=== PATIENT | female | born 1990 | race Caucasian/White ===

== ENCOUNTER 2023-12-04 22:20 | Emergency (ER) | payer BC ==
[2023-12-05 00:04] LABS: BASOPHILS ABSOLUTE AUTO 0.1 K/mm3 (0.0-0.2); BASOPHILS PERCENT AUTO 0.7 % (0.0-1.0); EOSINOPHILS ABSOLUTE AUTO 0.1 K/mm3 (0.0-0.4); EOSINOPHILS PERCENT AUTO 0.7 % (0.0-6.0); HEMATOCRIT 36.9 % (37.0-47.0); HEMOGLOBIN 12.4 gm/dl (12.0-16.0); IMMATURE GRAN ABSOLUTE AUTO 0.02 K/mm3 (0.00-0.05); IMMATURE GRAN PERCENT AUTO 0.3 % (0.0-0.4); LYMPHOCYTES ABSOLUTE AUTO 1.9 K/mm3 (1.0-4.8); LYMPHOCYTES PERCENT AUTO 26.2 % (24.0-44.0); MEAN CORPUSCULAR HEMOGLOBIN 30.8 pg (28.0-32.0); MEAN CORPUSCULAR HGB CONC 33.6 g/dl (32.0-36.0); MEAN CORPUSCULAR VOLUME 91.6 fl (83.0-99.0); MONOCYTES ABSOLUTE AUTO 0.7 K/mm3 (0.0-0.8); MONOCYTES PERCENT AUTO 9.1 % (0.0-8.0); NEUTROPHILS ABSOLUTE AUTO 4.7 K/mm3 (1.8-7.7); PLATELET COUNT,PLT 392 K/mm3 (150-400); RED BLOOD CELL COUNT 4.03 M/mm3 (4.10-5.30)
[2023-12-05 00:34] LABS: A/G RATIO 1.1 (1-2); ALANINE AMINOTRANSFERASE,ALT 23 U/L (14-59); ALBUMIN 4.3 g/dl (3.4-5.0); ALKALINE PHOSPHATASE 72 U/L (46-116); ANION GAP 15.4 (5-15); ASPARTATE AMNIOTRANSFERASE,AST 18 U/L (15-37); BILIRUBIN TOTAL 0.3 mg/dL (0.2-1.0); BLOOD UREA NITROGEN,BUN 13 mg/dL (7-18); BUN/CREATININE RATIO 16.3 (14-18); CALCIUM 9.2 mg/dL (8.5-10.1); CARBON DIOXIDE,CO2 25 mEq/L (21-32); CHLORIDE,CL 100 mEq/L (98-107); CREATININE 0.8 mg/dL (0.55-1.02); EST CRCL DRUG DOSING (CG) 81.31 mL/min; ESTIMATED GFR 99 mL/min (>60); GLUCOSE RANDOM 89 mg/dL (70-99); POTASSIUM,K 3.4 mEq/L (3.5-5.1); PROTEIN TOTAL,TP 8.1 g/dl (6.4-8.2); SODIUM,NA 137 mEq/L (136-145)
[2023-12-05] MEDS: Dextrose 5%-0.9% NaCl 1,000 ML IV SCH (00:40)
[2023-12-05] MEDS: Metoclopramide 10 MG/2 ML SDV IVPUSH ONE (00:41)
[2023-12-05] MEDS: HYDROmorphone 0.5 MG/0.5 ML Syringe IVPUSH ONE (00:44)
[2023-12-05 01:06] LABS: C-REACTIVE PROTEIN < 0.05 mg/dL (<0.30)
[2023-12-05] MEDS: Misoprostol 200 MCG Tab ONE (02:12)
[2023-12-05] MEDS: Misoprostol 25 MCG (1/4 of 100 MCG) Tab VAG ONE (02:15)
[2023-12-05] MEDS: Acetaminophen/oxyCODONE 325-5 MG Tab PO ONE (02:55)
== END 2023-12-05 03:10 | disposition home or self-care (01) ==
LOC: JD.ED 22:20
DX: O03.4 Incomplete spontaneous abortion without complication (principal); Z86.16 Personal history of COVID-19; Z79.899 Other long term (current) drug therapy
CPT/HCPCS: 36415; 76830; 80053; 84702; 84703; 85025; 86140; 86850; 86900; 86901; 96361; 96374; 96375; 99284; A9270; J1170; J2765; J7042

== ENCOUNTER 2023-12-09 15:40 | Emergency (ER) | payer BC ==
[2023-12-09 19:47] LABS: BASOPHILS ABSOLUTE AUTO 0.1 K/mm3 (0.0-0.2); BASOPHILS PERCENT AUTO 0.9 % (0.0-1.0); EOSINOPHILS ABSOLUTE AUTO 0.1 K/mm3 (0.0-0.4); EOSINOPHILS PERCENT AUTO 2.1 % (0.0-6.0); HEMOGLOBIN 10.4 gm/dl (12.0-16.0); IMMATURE GRAN ABSOLUTE AUTO 0.01 K/mm3 (0.00-0.05); IMMATURE GRAN PERCENT AUTO 0.2 % (0.0-0.4); LYMPHOCYTES PERCENT AUTO 38.4 % (24.0-44.0); MEAN CORPUSCULAR HEMOGLOBIN 30.9 pg (28.0-32.0); MEAN CORPUSCULAR HGB CONC 33.5 g/dl (32.0-36.0); MEAN PLATELET VOLUME 8.9 fl (9.4-12.3); MONOCYTES ABSOLUTE AUTO 0.4 K/mm3 (0.0-0.8); MONOCYTES PERCENT AUTO 8.3 % (0.0-8.0); NEUTROPHILS ABSOLUTE AUTO 2.7 K/mm3 (1.8-7.7); NEUTROPHILS PERCENT AUTO 50.1 % (41.0-71.0); PLATELET COUNT,PLT 322 K/mm3 (150-400); RED BLOOD CELL COUNT 3.37 M/mm3 (4.10-5.30); WHITE BLOOD CELL COUNT,WBC 5.29 K/mm3 (3.9-11.3)
[2023-12-09 20:13] LABS: A/G RATIO 1.1 (1-2); ALBUMIN 3.7 g/dl (3.4-5.0); ANION GAP 11.4 (5-15); BILIRUBIN TOTAL 0.3 mg/dL (0.2-1.0); BUN/CREATININE RATIO 14.3 (14-18); CALCIUM 8.7 mg/dL (8.5-10.1); CREATININE 0.7 mg/dL (0.55-1.02); EST CRCL DRUG DOSING (CG) 92.78 mL/min; POTASSIUM,K 3.4 mEq/L (3.5-5.1); PROTEIN TOTAL,TP 7.2 g/dl (6.4-8.2)
== END 2023-12-09 22:10 | disposition home or self-care (01) ==
LOC: JD.ED 15:40
DX: O03.9 Complete or unspecified spontaneous abortion without complication (principal); Z86.16 Personal history of COVID-19; Z79.899 Other long term (current) drug therapy
CPT/HCPCS: 36415; 80053; 84702; 85025; 99284